=== PATIENT | male | born 1955 | race African-American/Black ===

== ENCOUNTER 2024-06-17 17:51 | Emergency (ER) | payer OTHER ==
[~2024-06-17] VITALS: Ht 182.9 cm; Wt 81.0 kg
[2024-06-17 21:05] VITALS: BP 168/95; TEMP 98.2
[2024-06-17 21:26] VITALS: PULSE 58; RESP 16; O2SAT 98
[2024-06-17] MEDS: KETOROLAC TROMETH 60MG/2ML VIAL IM ONE (22:13)
== END 2024-06-17 23:48 | disposition left against medical advice (07) ==
LOC: ER 17:51
DX: S29.012A Strain of muscle and tendon of back wall of thorax, initial encounter (principal); Y08.89XA Assault by other specified means, initial encounter; Y93.89 Activity, other specified; Y92.89 Other specified places as the place of occurrence of the external cause; Y99.0 Civilian activity done for income or pay
CPT/HCPCS: 72070; 96372; 99283; J1885